=== PATIENT | male | born 1995 | race Caucasian/White ===

== ENCOUNTER → 2016-10-10 | Outpatient (CLI) | payer OTHER ==
[~2016-10-10] MED LIST: CONRAY-43 43% 50ML VIAL (Q9960) As Ordered ONE
--- NOTE | 2016-10-10 11:04 | REP ---
MR arthrography right shoulder: with pre and post intra-articular gadolinium enhanced saline injected imaging: History: Right shoulder pain. No comparison imaging. Technique: The injection procedure is performed and dictated separately. Pre and post intra-articular gadolinium enhanced saline injected imaging is acquired. Imaging planes include axial, oblique coronal, oblique sagittal and ABER projection images. T1 T2-weighted scans are included with and without fat saturation. MRI findings: Preinjection MR imaging shows a multiloculated periarticular cyst adjacent to the inferior glenoid. This can be traced from an anteroinferior glenoid labral cartilage tear. This is a large cyst measuring 2.7 cm in oblique medial to lateral by 1.9 cm anterior to posterior by 2.1 cm craniocaudal. There is also an intraosseous cyst in the superolateral humeral head measuring 11 mm in greatest diameter. Cortical and medullary bone signal intensity are otherwise normal. Glenohumeral and acromioclavicular joints are normally aligned. Post injection imaging shows good filling and enhancement of the glenohumeral articulation. The anterior inferior glenoid labral cartilage tear is seen and there is opacification in a portion of the para labral cyst post injection. The labral cartilage tear extends inferiorly and posteriorly. There is no evidence of rotator cuff tear. The supraspinatus, subscapularis, biceps, and infraspinatus tendons are intact. ABER images show fraying of the anterior cartilage in addition to the anteroinferior tear. No posterior labral tear is seen. No loose body is seen. Impression: Anteroinferior labral cartilage tear with a large para labral cyst. Subcortical cyst is seen in the superolateral humeral head as well. No evidence of rotator cuff tear. Otherwise negative. Signed by Lamberto Monique MD 10/10/2016 02:33 P
--- NOTE | 2016-10-10 14:47 | REP ---
Procedure: Right shoulder arthrogram The procedure was performed under the direct supervision of Dr. Monique. History: Right shoulder pain. The benefits and risks including but not limited to pain, infection, bleeding and anaphylaxis were explained to the patient and informed consent was obtained. Technique: The right glenohumeral joint space was localized using fluoroscopic guidance. The skin was prepped and draped in a sterile fashion. 1% lidocaine was used as a local anesthetic. Using fluoroscopic guidance a 22 gauge spinal needle was inserted and advanced into the joint. 0.5 ml of Conray 43 was injected to verify placement. 11 ml of a solution containing 20 ml of sterile saline and 0.15 ml of ProHance was injected into the joint. The needle was removed and the patient was taken to MRI for postprocedural imaging. The the patient tolerated the procedure well and there were no immediate complications. 1 second of fluoro time was utilized for this procedure. Reviewed by ZAINA Matos 10/10/2016 08:18 ASigned by Lamberto Monique MD 10/10/2016 02:36 P
== END ==
LOC: M RADPRO 06:49
PROVIDERS: ATTEND General Practice
DX: S43.431A Superior glenoid labrum lesion of right shoulder, initial encounter (principal); X58.XXXA Exposure to other specified factors, initial encounter; Y92.9 Unspecified place or not applicable; Y93.9 Activity, unspecified; Y99.9 Unspecified external cause status
CPT/HCPCS: 23350; 73223; 77002; A9576; Q9960

== ENCOUNTER → 2016-12-27 | Outpatient (CLI) | payer OTHER ==
--- NOTE | 2016-12-27 07:58 | REP ---
Clinical: Pain. Technique: AP, lateral, bilateral oblique views of the left ankle. 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 No obvious acute fracture or dislocation. No significant soft tissue swelling. Ankle mortise appears intact. Two orthopedic screws through the calcaneus are identified without marginal lucency. No subcutaneous emphysema. No foreign body. 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 No acute fracture or dislocation. Signed by Tian Brown MD 12/27/2016 07:50 A
--- NOTE | 2016-12-27 07:58 | REP ---
Clinical: Chest pain. Ankle pain . Comparison: None . Technique: PA and lateral. Findings: The mediastinum and cardiac silhouette are normal. The lung schwartz are clear and without acute consolidation, effusion, or pneumothorax. The skeletal structures are intact and normal. Impression: 1. No acute cardiopulmonary process. Signed by Tian Brown MD 12/27/2016 07:49 A
== END ==
LOC: M RAD 06:42
PROVIDERS: ATTEND Internal Medicine
DX: M25.572 Pain in left ankle and joints of left foot (principal)

== ENCOUNTER 2017-05-11 06:37 | Emergency (ER) | payer OTHER ==
[~2017-05-11] VITALS: Ht 182.9 cm; Wt 84.0 kg
[2017-05-11] MEDS ORDERED: RANI150T PO (06:46)
[2017-05-11] MEDS ORDERED: ADDE20CA3 PO (06:46)
--- NOTE | 2017-05-11 08:07 | REP ---
Clinical: Left flank pain and hematuria. Findings: Mild acute left obstructive uropathy including minimal perinephric and periureteral stranding secondary to a 4 mm calculus in the distal left ureter (images 129 - 130). The remainder of the urinary tract system is unremarkable. Liver, spleen, pancreas, gallbladder, bilateral adrenal glands are normal. The enteric system is without obstruction or acute inflammatory process. Pelvis demonstrates partially collapsed normal bladder and age appropriate prostate/seminal vesicles. No ascites. No free air. No adenopathy. Musculoskeletal structures are intact. Lung bases are clear. Impression: Mild acute left-sided obstructive uropathy with a 4 mm calculus in the distal left ureter. Signed by Tian Brown MD 05/11/2017 07:58 A
[2017-05-11] MEDS ORDERED: FLOM5CAP PO (08:09)
[2017-05-11] MEDS ORDERED: ZOFR4TAB3 PO (08:09)
[2017-05-11 08:13] VITALS: BP 155/88
== END 2017-05-11 08:14 | disposition home or self-care (01) ==
LOC: M ED 06:37
DX: N20.1 Calculus of ureter (principal); R30.0 Dysuria; R31.0 Gross hematuria; R11.2 Nausea with vomiting, unspecified; Z79.899 Other long term (current) drug therapy